=== PATIENT | female | born 1985 | race Caucasian/White ===

== ENCOUNTER 2021-08-06 06:48 | Emergency (ER) | payer BC ==
[~2021-08-06 06:48] MED LIST: Famotidine 20 MG Tab ONE; Famotidine 20 MG Tab PO ONE; diphenhydrAMINE 25 MG Cap ONE; diphenhydrAMINE 25 MG Cap PO ONE
[2021-08-06] MEDS ORDERED: methylPREDNISolone Sodium Succinate 125 MG/2 ML SDV ONE (06:50)
[2021-08-06] MEDS ORDERED: Ondansetron 4 MG/2 ML SDV ONE (06:50)
[2021-08-06] MEDS ORDERED: Ondansetron 4 MG/2 ML SDV IVPUSH ONE (06:51)
[2021-08-06] MEDS ORDERED: methylPREDNISolone Sodium Succinate 125 MG/2 ML SDV IVPUSH ONE (06:51)
[2021-08-06] MEDS ORDERED: Sodium Chloride 0.9% 10 ML Syringe FLUSH PRN (06:51)
[2021-08-06] MEDS ORDERED: hydrOXYzine HCl 25 MG Tab PO ONE (06:53)
--- NOTE | 2021-08-06 06:54 | EDM.PDOC ---
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 She was eating peanut butter and started to suddenly developed tingling of the lips. This was followed 10 to 15 minutes later by intense itching and urticaria on the neck, chest, back, thighs, and later on the arms. Cari was given Pepcid 20 mg p.o. and Benadryl 50 mg p.o. but continued to worsen and symptoms starting develop nausea, lightheadedness, worsening urti caria and dizziness. She was unable to stand or ambulate on her own. She was not exhibiting any shortness of breath or difficulty swallowing. At this point that we decided to register her and initiate intravenous steroids, Zofran, and hydroxyzine. The patient has been eating peanut butter without issues in the past but tonight for some reason started to develop allergic type symptoms. 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 History: csection x1 - Infectious Disease History Infectious Disease History: Reports: Chicken Pox - Past Surgical History Female Surgical History: Reports: Section Social & Family History - Family History Family Medical History: No Pertinent Family History - Caffeine Use Caffeine Use: Reports: Coffee, Soda ED ROS ALLERGIC REACTION - Review of Systems Review Of Systems: See Below Constitutional: Reports: Diaphoresis HEENT: Reports: No Symptoms Respiratory: Reports: No Symptoms Cardiovascular: Reports: No Symptoms Endocrine: Reports: No Symptoms GI/Abdominal: Reports: Nausea : Reports: No Symptoms Musculoskeletal: Reports: No Symptoms Skin: Reports: Erythema, Urticaria Neurological: Reports: Dizziness (Right headedness), Difficulty Walking Psychiatric: Reports: No Symptoms Hematologic/Lymphatic: Reports: No Symptoms Immunologic: Reports: No Symptoms ED EXAM GENERAL NO PERIP PULSE - Physical Exam Exam: See Below Exam Limited By: No Limitations General Appearance: Alert, Anxious, Mild Distress Neurological: Alert, Oriented, No Motor/Sensory Deficits Psychiatric: Anxious Skin Exam: Ecchymosis (Flushing of the face, neck, chest and back), Rash (Urticaria with intense pruritus) Course - Vital Signs Last Recorded V/S: Last Vital Signs Temp 36.8 C 08/06/21 07:02 Pulse 96 08/06/21 07:02 Resp 18 08/06/21 07:02 BP 113/70 08/06/21 07:02 Pulse Ox 98 08/06/21 07:02 - Orders/Labs/Meds Orders: Active Orders 24 hr Category Date Time Status Sodium Chloride 0.9% [Saline Flush] Med 08/06/21 06:51 Active 10 ml FLUSH ASDIRECTED PRN Saline Lock Insert [OM.PC] Routine Oth 08/06/21 06:51 Ordered Medication Orders Sodium Chloride (Sodium Chloride 0.9% 10 Ml Syringe) 10 ml FLUSH ASDIRECTED PRN PRN Reason: Keep Vein Open Last Admin: 08/06/21 06:56 Dose: 10 ml Documented by: ARTHUR Meds: Medications Generic Name Dose Route Start Last Admin Trade Name Freq PRN Reason Stop Dose Admin Sodium Chloride 10 ml 08/06/21 06:51 08/06/21 06:56 Sodium Chloride 0.9% 10 Ml Syringe FLUSH 10 ml ASDIRECTED PRN Administration Keep Vein Open Discontinued Medications Generic Name Dose Route Start Last Admin Trade Name Freq PRN Reason Stop Dose Admin Hydroxyzine HCl 25 mg 08/06/21 06:53 08/06/21 07:01 Hydroxyzine Hcl 25 Mg Tab PO 08/06/21 06:54 25 mg ONETIME ONE Administration Methylprednisolone Sodium Succinate 125 mg 08/06/21 06:51 08/06/21 06:56 Methylprednisolone Sodium Succinate 125 Mg/2 Ml Sdv IVPUSH 08/06/21 06:52 125 mg ONETIME ONE Administration Ondansetron HCl 4 mg 08/06/21 06:51 08/06/21 06:57 Ondansetron 4 Mg/2 Ml Sdv IVPUSH 08/06/21 06:52 4 mg ONETIME ONE Administration - Re-Assessments/Exams Free Text/Narrative Re-Assessment/Exam: 08/06/21 06:59 in total, Cari has received famotidine 20 mg p.o., diphenhydramine 50 mg p.o., Solu-Medrol 125 mg IV push, Zofran 4 mg IV push, and hydroxyzine 25 mg p.o. 08/06/21 07:25 She was observed in the ED with improvement over 30 minutes. Departure - Departure Time of Disposition: 07:20 Disposition: Home, Self-Care 01 Clinical Impression: Allergic reaction to peanut - Discharge Information Instructions: Allergies, Adult Referrals: PCP,Unknown [Primary Care Provider] - Forms: ED Department Discharge Sepsis Event Note (ED) - Focused Exam Vital Signs: Vital Signs Temp Pulse Resp BP Pulse Ox 08/06/21 07:02 36.8 C 96 18 113/70 98 - Problem List & Annotations (1) Allergic reaction to peanut SNOMED Code(s): [id number] Code(s): T78.1XXA - OTH ADVERSE FOOD REACTIONS, NOT ELSEWHERE CLASSIFIED, INIT Status: Acute Priority: Low Current Visit: Yes - Problem List Review Problem List Initiated/Reviewed/Updated: Yes - My Orders Last 24 Hours: My Active Orders 08/06/21 06:51 Sodium Chloride 0.9% [Saline Flush] 10 ml FLUSH ASDIRECTED PRN Saline Lock Insert [OM.PC] Routine - Assessment/Plan Last 24 Hours: My Active Orders 08/06/21 06:51 Sodium Chloride 0.9% [Saline Flush] 10 ml FLUSH ASDIRECTED PRN Saline Lock Insert [OM.PC] Routine
[2021-08-06 07:03] VITALS: BP 113/70; PULSE 96
== END 2021-08-06 07:52 | disposition home or self-care (01) ==
LOC: JP.ED 06:48
DX: T78.1XXA Other adverse food reactions, not elsewhere classified, initial encounter (principal); Z88.5 Allergy status to narcotic agent
CPT/HCPCS: 96374; 96375; 99283; A9270; J2405; J2930

== ENCOUNTER → 2022-05-28 | Emergency (ER) | payer BC | LOC: EDSTATUS 09:31 → JP.ED 21:16 | DX: Z53.21 Procedure and treatment not carried out due to patient leaving prior to being seen by health care provider (principal) | CPT/HCPCS: 81001; 87077; 87086 ==